=== PATIENT | male | born 1970 | race Caucasian/White ===

== ENCOUNTER → 2018-05-08 | Outpatient (CLI) | payer OTHER ==
[~2018-05-08] MED LIST: AMLOD-VALSA-HC1 EAC2 PO; ATORVASTATIN CA20 MG PO; GLUCOPHAGE1000 MG PO; HUMALOG100 UNIT/2 SC; LYRICA100 MG PO; RAMIPRIL10 MG PO; TRESIBA FL100 UNIT/1 SC; VICTOZA0.6 MG/0.1 SC; VITAMIN B125000 MCG PO; VITAMIN D5000 UNI1 PO
== END | disposition home or self-care (01) ==
LOC: PICC 12:30
DX: L03.031 Cellulitis of right toe (principal)
CPT/HCPCS: 76937; C1894